=== PATIENT | male | born 1985 | race Caucasian/White ===

== ENCOUNTER 2017-03-24 17:03 | Emergency (ER) | payer SELFPAY ==
[~2017-03-24] VITALS: Ht 177.8 cm; Wt 85.0 kg
[2017-03-24 17:05] VITALS: BP 136/72; PULSE 86; RESP 20; TEMP 98.9; O2SAT 98
--- NOTE | 2017-03-24 17:14 | PD ---
Physical Exam Date Seen by Provider: Mar 24, 2017 Time Seen by Provider: 17:13 Narrative 31 yo male here for weakness. Been feeling weak and tired for the past few days. No injuries. Started yesterday but not better. Lightheaded. Has rash to legs and unsure if related. Vitals are stable in triage. Awaiting Bed placement. Data Data Last Documented VS Vital Signs Date Time Temp Pulse Resp B/P Pulse Ox O2 Delivery O2 Flow Rate FiO2 03/24/17 17:05 98.9 86 20 136/72 98 Room Air [facility] Medical Record Reviewed: Yes Supervised Visit with BRYAN: No Calvin Powell Mar 24, 2017 17:14
== END 2017-03-24 20:00 | disposition left against medical advice (07) ==
LOC: NED 17:03
DX: R53.1 Weakness (principal)
CPT/HCPCS: 99281